=== PATIENT | male | born 2000 | race Caucasian/White ===

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

== ENCOUNTER 2022-01-13 11:22 | Emergency (ER) | payer OTHER ==
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
[2022-01-13] MEDS ORDERED: IBUPROFEN 400 MG TAB ONE (15:39)
[2022-01-13] MEDS ORDERED: ACETAMINOPHEN 325 MG TABLET ONE (15:39)
[2022-01-13 18:12] VITALS: TEMP 97.9; O2SAT 100
[2022-01-13 18:13] VITALS: BP 137/83
== END 2022-01-13 15:46 | disposition home or self-care (01) ==
LOC: ER 11:22
DX: S42.022A Displaced fracture of shaft of left clavicle, initial encounter for closed fracture (principal); V09.29XA Pedestrian injured in traffic accident involving other motor vehicles, initial encounter
CPT/HCPCS: 70450; 72125; 99283